=== PATIENT | female | born 1930 | race Caucasian/White ===

== ENCOUNTER 2017-04-10 12:46 | Inpatient (IN) | payer MEDICARE, OTHER ==
--- NOTE | ~2017-04-10 | OP ---
Record Of Operation [facility] [address] [place]. [address] NAME: ANA CORNEJO : 31 STATUS : ADM IN PAT#: [id number] AGE: 86 ADM/REG DATE : 04/10/17 MR#: [id number] REPORT SERV DATE: 04/21/17 DICTATED BY: SCOTT URIOSTEGUI III DATE: 04/21/17 REPORT STATUS : Draft TRANSCRIBED BY: MODL DATE: 04/21/17 DATE OF PROCEDURE: 04/21/2017 PROCEDURE: Assisted urethral dilatation and Short replacement. PREOPERATIVE DIAGNOSIS: UTI and urethral stricture. POSTOPERATIVE DIAGNOSIS: UTI and urethral stricture. ANESTHESIA: General. DESCRIPTION OF PROCEDURE: Following induction of adequate general anesthesia, the patient's bottom was elevated with a blanket. Her legs were minimally abducted with a slight flexion in the hip joints. We did not overstretch her. The urethra was visible. The catheter was removed and I initially had planned to dilate her, instead, I used a very small cystoscope sheath over a wire and surprisingly the web just inside the meatus spread apart and I was able to leave the bladder. The bladder had some old clots, was trabeculated, had almost necrotic look. I was able to dilate to a 20-Filipino with the larger sheath and we placed a 16 Filipino Short. It irrigated clear after some initial bleeding. She tolerated the procedure well. OB/MODL Scott Uriostegui III, M.D. / [id number] CC: Vanesa Casiano M.D.
--- NOTE | ~2017-04-10 | HP ---
History And Physical [address] [place]. [address] NAME: ANA CORNEJO : 31 STATUS : ADM IN [facility]#: [id number] AGE: 86 ADM/REG DATE : 04/10/17 MR#: [id number] REPORT SERV DATE: 04/10/17 DICTATED BY: Tricia CARRANZA DATE: 04/10/17 REPORT STATUS : Draft TRANSCRIBED BY: MODL DATE: 04/10/17 DATE OF ADMISSION: 04/10/2017 HISTORY OF PRESENT ILLNESS: An 86-year-old female patient with history of paroxysmal atrial fibrillation and cervical cancer with prior radiation and chemotherapy, currently living with her daughter, was brought in with several days of lethargy, confusion, poor oral intake. On arrival, she was found to have atrial fibrillation with rapid ventricular response. After Cardizem bolus, she is currently sinus rhythm at 84. Daughter also states she has had five consecutive UTIs. She states that they have done at least one culture that grew Escherichia coli. Also, in the emergency room, they were unable to place a Short catheter. Her previous creatinine was 0.73, current creatinine is 2.76. She has had previous cystoscopy done roughly four years ago by Dr. Scott Morris, pathology from that study was benign. Daughter states the patient is currently full code. We will admit the patient for further evaluation and treatment of acute kidney injury and atrial fibrillation that is paroxysmal in nature. PAST MEDICAL HISTORY: Includes paroxysmal atrial fibrillation, hypertension, cervical cancer with prior chemo and radiation, chronic anemia, depression, arthritis, osteoporosis, recurrent UTIs. SOCIAL HISTORY: The patient previously has been in [facility], currently living with her daughter with the assistance of Home Health Care. No alcohol or tobacco or illicit drugs. REVIEW OF SYSTEMS: Significant for lethargy, confusion, malaise, poor oral intake. No reported chest pain or shortness of breath. No high fever or shaking chills. No hematuria, dark stools, or bright red blood per rectum. Remainder of 10-point review of systems negative. FAMILY HISTORY: Positive for heart disease. PHYSICAL EXAMINATION: VITAL SIGNS: Temperature is 98.1; heart rate is 130, currently 84; respirations 21; blood pressure is 102/57. GENERAL: Well-developed, elderly female patient, sleepy, who will arouse to voice and answers simple questions, but is confused. HEENT: Pupils are equal, round, and reactive to light. Extraocular muscles are intact. Oropharynx is clear. NECK: Without JVD or bruit. LUNGS: Clear with few basilar rales noted. HEART: Regular without audible murmur. ABDOMEN: Obese, soft. Positive bowel sounds without organomegaly or mass. EXTREMITIES: No edema. Pulses are +2. SKIN: Without rash or ecchymotic area. JOINTS: Without synovitis, effusion, or deformity. Diffuse osteoarthritic changes noted. NEUROLOGIC: Cranial nerves grossly intact. Motor exam is diminished, but nonfocal. History And Physical [address] [facility]. [address] NAME: ANA CORNEJO : 31 STATUS : ADM IN [facility]#: [id number] AGE: 86 ADM/REG DATE : 04/10/17 MR#: [id number] REPORT SERV DATE: 04/10/17 DICTATED BY: Tricia CARRANZA DATE: 04/10/17 REPORT STATUS : Draft TRANSCRIBED BY: GÉNESIS DATE: 04/10/17 Sensation unremarkable. Gait was not assessed. LABORATORY DATA: Available data: Sodium 137, potassium 3.9, chloride 102, bicarb 27, BUN 36, creatinine 2.76, albumin is 1.7. White count is 14.8, hemoglobin is 11.1, hematocrit 35.4, platelets 276. IMPRESSION: An 86-year-old female patient with general failure to thrive, presents with acute renal failure, potentially obstructive in nature, and atrial fibrillation, paroxysmal in nature. PLAN: Admit, telemetry unit. Consult her urologist, Dr. Scott Morris. Routine vitals. O2 per protocol. N.p.o. until seen by Urology. Data to include spot urine sodium/creatinine and osmolality, TSH, repeat CBC, and electrolytes. Noncontrasted CT of the abdomen and pelvis to evaluate for pathology particularly for obstructive changes in the urinary system. Hydrate with saline at 125 an hour. Reasonable pain and nausea control will be offered. We will hold antimicrobial therapy until urinalysis is available. Echocardiogram to be read by [facility] to evaluate left ventricular and valvular function. With regard to her home medications, we will continue current home medications per med reconciliation form. Sunburst full code status per family request. Further recommendations for treatment pending observation of her clinical course, review of pending laboratory data, review of CT findings, input from Urology. Pending trend in her creatinine, would also have some consideration for consulting Nephrology if she does not promptly improve with cannulization of the bladder and IV hydration. EARL/GÉNESIS Tricia Carranza M.D. / [id number]
--- NOTE | ~2017-04-10 | CN ---
Consultation Report [facility] [address] [place]. [address] NAME: ANA CORNEJO : 31 STATUS : ADM IN PAT#: [id number] AGE: 86 ADM/REG DATE : 04/10/17 MR#: [id number] REPORT SERV DATE: 04/12/17 DICTATED BY: SCOTT URIOSTEGUI III DATE: 04/12/17 REPORT STATUS : Draft TRANSCRIBED BY: MODL DATE: 04/12/17 CONSULTATION DATE OF CONSULTATION: 04/10/2017 REASON FOR CONSULT: Inability to place Short catheter, UTI, and elevated creatinine. HISTORY OF PRESENT ILLNESS: She is an 86-year-old white female, known to me. She came in with atrial fibrillation with rapid ventricular rate. Her creatinine was noted to be 2.76. She has also had a number of UTIs including E coli, according to her daughter. Multiple attempts were made to place the catheter, which were unsuccessful. She has a history of cervical cancer with seed implants, external beam, and chemotherapy. Several years ago, she had bladder biopsies that were negative. She basically leaks into a diaper most of the time and has very little control. Denies any dysuria or gross hematuria. Her white count was 15.26. Urine was very inflammatory. PAST MEDICAL HISTORY: Includes atrial fibrillation, hypertension, cervical cancer, depression, osteoporosis, and UTIs. SOCIAL HISTORY: She is living with her daughter. Does not drink or smoke. REVIEW OF SYSTEMS: A 10-point review of systems was essentially negative with the exception that she is not ambulatory and has multiple hip and knee problems that leave her the legs contracted. FAMILY HISTORY: Positive for heart disease. PHYSICAL EXAMINATION: VITAL SIGNS: She was afebrile. Pulse was 80 and regular. Blood pressure was 110/60. GENERAL: She was fairly alert, responded appropriately to questions, but could not give much detail. HEENT: Pupils were equal, round, and reactive. NECK: Supple. LUNGS: Clear. HEART: She was in a regular rhythm without murmur. ABDOMEN: Soft. Bowel sounds were present and active. Liver and spleen were not enlarged. GENITOURINARY: The bladder was not palpable. Her lower extremities were fixed. We could not abduct when I tried multiple times even including with some sedation. When I passed the catheter, I could see the meatus, but simply could not traverse the lumen. IMPRESSION: Elderly white female with urinary tract infection. Her PVR was around 250 mL. She is obviously infected and will need a catheter placed in the a.m., possibly in the operating room. She may well have a urethral stricture, so I did gain access to the meatus, but simply could not put a coude through it, and under the circumstances, had poor exposure. Consultation Report [address] [place] [facility] [place]. [address] NAME: ANA CORNEJO : 31 STATUS : ADM IN PAT#: [id number] AGE: 86 ADM/REG DATE : 04/10/17 MR#: [id number] REPORT SERV DATE: 04/12/17 DICTATED BY: SCOTT URIOSTEGUI III DATE: 04/12/17 REPORT STATUS : Draft TRANSCRIBED BY: GÉNESIS DATE: 04/12/17 PLAN: We will keep her n.p.o., she is to get a CT scan, and we will see if there is hydronephrosis, possibly from bladder wall thickening. OB/MODL Scott Uriostegui III, M.D. / [id number] CC: Ti Baptiste M.D.
--- NOTE | ~2017-04-10 | DS ---
Discharge Summary [facility] [address] [place]. [address] NAME: ANA CORNEJO : 32 STATUS : DIS IN PAT#: [id number] AGE: 86 ADM/REG DATE : 04/10/17 MR#: [id number] REPORT SERV DATE: 04/28/17 DICTATED BY: EDWINA KWONG DATE: 04/27/17 REPORT STATUS : Draft TRANSCRIBED BY: MODL DATE: 04/27/17 ADMISSION DATE: 04/10/2017 DISCHARGE DATE: 04/27/2017 DISCHARGE DISPOSITION: To [facility] [place]. DISCHARGE DIAGNOSES: Ureteral stricture status post urethral dilation, Short placement per urologist and Subsequent removal, on 04/22/2017 stricture thought secondary to history of radiation, recurrent UTIs resolved by time of discharge with extended antibiotic treatment, atrial fibrillation, urinary bladder severe damage secondary to radiation therapy history with history of cervical cancer, swallowing dysfunction with silent aspiration on thickened diet, improved after acute encephalopathy, treatment for urinary tract infection has been improved, chronic bedridden, chronically weak, baseline dementia, Escherichia coli urinary tract infection present on arrival with severe sepsis present on arrival, hypokalemia, constipation, and chronic debility. HOSPITAL COURSE: Please see H and P for complete details of HPI briefly, and interim summary by this play writer on 04/19/[address] Davis on 04/25/2017, and with consultations of Dr. Concepcion, Cardiology; Dr. Morris with assisted ureteral dilation Short placement with subsequent removal. HISTORY OF PRESENT ILLNESS: The patient is an 86-year-old female with past medical history of cervical cancer, and post chemo/radiation with frequent UTIs, multiple treatments and atrial fibrillation, who presents with atrial fibrillation and RVR with recurrent UTI and CRISTY secondary to hypertension. The patient did have Short placement that had to be surgically placed by Dr. Morris. With subsequent improvement the patient was able to have clearance of UTI, was placed on Rocephin therapy with significant improvement. The patient did have what appeared to be acute decompensation of dementia, possible acute encephalopathy, which had improvement in mental status after improvement of urinary flow was returned, return of creatinine function and treatment of UTI. The patient did have even further debility of her baseline state and family was agreeable to short-term rehab to get her back to her stability where she is able to perform at least her ADLs. The patient was tolerating p.o., although her food choices were somewhat limiting to how much the patient would eat, thus the patient was placed on thickened diet and did not prefer thickeners, but was eager to eat various types of ice creams, popsicles without difficulty as her speech function continued to improve. Palliative Care was also consulted for additional assistance per family. The patient has completed over 10 days of antibiotic therapy. DISCHARGE MEDICATIONS: 1. Tessalon Perles 200 mg one tablet p.o. t.i.d. as needed for cough. 2. Synthroid 75 mg one tablet p.o. daily. 3. Daily multivitamin. 4. Lopressor 37.5 mg one tablet p.o. b.i.d. 5. AZO one tablet p.o. t.i.d. 6. Tramadol 50 mg one tablet p.o. q.8 hours for pain. 7. Midodrine 5 mg one tablet p.o. daily. Discharge Summary [address] [address] NAME: ANA CORNEJO : 32 STATUS : DIS IN PAT#: [id number] AGE: 86 ADM/REG DATE : 04/10/17 MR#: [id number] REPORT SERV DATE: 04/28/17 DICTATED BY: EDWINA KWONG DATE: 04/27/17 REPORT STATUS : Draft TRANSCRIBED BY: GÉNESIS DATE: 04/27/17 8. Tylenol 650 mg p.o. q.4 hours as needed for fever p.r.n. 9. Dulcolax 10 mg MN p.r.n. constipation. 10.Mag citrate 300 mg p.o. liquid daily for constipation. 11.Zofran 4 mg q.4 as needed for nausea. 12.Cymbalta, Restoril, and Percocet all to be followed with PCP as the patient does not require these while inpatient. The patient also followed with Urology as ordered. Follow up with PCP in one to two weeks for followup BMP, CBC in one to two weeks. DICTATED BY: MD MAKR Juárez/GÉNESIS Edwina Kwong MD / [id number] CC: MD Rebel Juárez M.D.
--- NOTE | ~2017-04-10 | OP ---
Record Of Operation [facility] [address] [place] [address] NAME: ANA CORNEJO : 31 STATUS : ADM IN PAT#: [id number] AGE: 86 ADM/REG DATE : 04/10/17 MR#: [id number] REPORT SERV DATE: 04/11/17 DICTATED BY: SCOTT URIOSTEGUI III DATE: 04/11/17 REPORT STATUS : Draft TRANSCRIBED BY: MODL DATE: 04/11/17 DATE OF PROCEDURE: 04/11/2017 PROCEDURE: Insertion of urethral Short. PREOPERATIVE DIAGNOSIS: Urinary tract infection with probable urethral stricture. POSTOPERATIVE DIAGNOSIS: Urinary tract infection with probable urethral stricture. ANESTHESIA: General. SURGEON: Scott Uriostegui M.D. DESCRIPTION OF PROCEDURE: Following induction of adequate general anesthesia, the patient's legs were gently raised. She was placed on blankets and we had excellent exposure. I tried to place a 16-Vietnamese Short in the meatus and it simply would not go. A 14-Vietnamese Short passed only with a good bit of K-wire injected. Grossly purulent cath urine was obtained. A culture was sent and she was placed on bag drainage. She tolerated the procedure well. OB/MODL Scott Uriostegui III, M.D. / [id number] CC: Ti Baptiste M.D.
--- NOTE | ~2017-04-10 | CN ---
Consultation Report [facility] [address] [place]. [address] NAME: ANA CORNEJO : 32 STATUS : ADM IN PAT#: [id number] AGE: 86 ADM/REG DATE : 04/10/17 MR#: [id number] REPORT SERV DATE: 04/11/17 DICTATED BY: MIKE CONCEPCION DATE: 04/11/17 REPORT STATUS : Draft TRANSCRIBED BY: MODL DATE: 04/11/17 CARDIOLOGY CONSULTATION NOTE DATE OF CONSULTATION: 04/11/2017 REASON FOR CONSULTATION: Preoperative evaluation in an 86-year-old woman with paroxysmal atrial fibrillation. HISTORY OF PRESENT ILLNESS: Ms. Cornejo is a pleasant 86-year-old woman with an apparent history of underlying dementia and paroxysmal atrial fibrillation. She is followed in Cardiology Clinic by Dr. Rebel Ramirez. The patient has no known history of coronary heart disease or congestive heart failure. The patient apparently was in her usual state of health until several days ago, when her daughter, who assist with her health care, began to notice worsening lethargy, confusion, and decreased p.o. intake. The patient was brought to [facility] room for evaluation. She was found to be in atrial fibrillation with rapid ventricular response, but apparently cardioverted to normal sinus rhythm with administration of IV Cardizem. The patient was also found to have acute renal failure. She was also found to have a urinary tract infection. The patient apparently has had several recent urinary tract infections. She was admitted for treatment of acute renal failure, complicated urinary tract infection, and has been evaluated by the Urology Service. A cystoscopy was performed earlier today and the Cardiology Service was consulted to make perioperative recommendations. PAST MEDICAL HISTORY: 1. Paroxysmal atrial fibrillation. 2. Hypertension. 3. Cervical cancer with previous history of chemo and radiation therapy. 4. Chronic anemia. 5. Depression. 6. Arthritis. 7. Osteoporosis. 8. Hypothyroidism. PAST SURGICAL HISTORY: Noncontributory. FAMILY HISTORY: Apparently positive for coronary heart disease, though essentially otherwise noncontributory. SOCIAL HISTORY: The patient currently resides at home with her daughter with home health care. The patient has no known history of tobacco, alcohol, or drug use. ALLERGIES: THE PATIENT HAS NO KNOWN MEDICATION ALLERGIES. HOME MEDICATIONS: Consultation Report [facility] [address] [place]. [address] NAME: ANA CORNEJO : 32 STATUS : ADM IN PAT#: [id number] AGE: 86 ADM/REG DATE : 04/10/17 MR#: [id number] REPORT SERV DATE: 04/11/17 DICTATED BY: MIKE CONCEPCION DATE: 04/11/17 REPORT STATUS : Draft TRANSCRIBED BY: GÉNESIS DATE: 04/11/17 1. Cymbalta 60 mg p.o. daily. 2. Levothyroxine 75 mg p.o. daily. 3. Metoprolol 25 mg p.o. twice daily. 4. Midodrine 5 mg p.o. daily. 5. Oxycodone and acetaminophen 5/325 mg one p.o. q.6 hours as needed. 6. Restoril 15 mg p.o. q.h.s. 7. Detrol 2 mg p.o. twice daily. 8. Tramadol 50 mg p.o. q.8 hours. REVIEW OF SYSTEMS: The patient is unable to provide a complete review of systems at this time. Of note, she does presently denies chest pain or shortness of breath and otherwise appears comfortable. PHYSICAL EXAMINATION: VITAL SIGNS: Temperature is 98.6 degrees Fahrenheit, blood pressure is 148/67 mmHg, respirations 14, and oxygen saturation is 94% on room air. CONSTITUTIONAL: The patient is a frail elderly-appearing white woman. The patient is currently disoriented to time and place; she gives the place as [place] and the year is 1975. The patient does not appear to be in any acute respiratory distress. EYES: PERRL, EOMI, clear conjunctiva. HEAD/MNT: NCAT with moist mucous membranes and grossly normal hard and soft palate. NECK: Supple with no obvious thyromegaly or lymphadenopathy. CARDIOVASCULAR: There is a regular rhythm with normal S1 and a physiologically split second heart sound. No significant murmurs, rubs, or gallops are noted. The jugular venous pressure is normal. PULMONARY: Clear to auscultation bilaterally, no wheezing, rales or rhonchi noted. No dullness to percussion. Non-labored. ABDOMINAL: Soft, nontender, nondistended with no hepatosplenomegaly noted. EXTREMITIES: There is 1+ ankle edema bilaterally. No clubbing or cyanosis is noted. MUSCULOSKELETAL: Grossly normal strength and range of motion in all extremities. INTEGUMENTARY: Skin appears intact with no bruises, wounds or active lesions noted. NEURO/PSYC: Alert and oriented x3, with no dysarthria, facial droop or lateralizing weakness noted. 12-lead EKG: The 12-lead EKG shows normal sinus rhythm with a nonspecific intraventricular conduction delay. It is a poor quality tracing, but does not appear to be significantly changed in comparison to a previous tracing from February 2016. Chest x-ray: No acute cardiopulmonary process is identified. LABORATORY: Urinalysis is positive for greater than 100,000 CFU/mL, liter of gram-negative bacilli. Electrolytes: Sodium is 140, potassium 3.6, chloride is 107, CO2 is 23, BUN 50, creatinine is 2.4, glucose is 65, calcium is 8.9. CBC shows a white blood cell count of 15.6, Consultation Report [id number] [place]. [address] NAME: ANA CORNEJO : 32 STATUS : ADM IN [facility]#: [id number] AGE: 86 ADM/REG DATE : 04/10/17 MR#: [id number] REPORT SERV DATE: 04/11/17 DICTATED BY: MIKE CONCEPCION DATE: 04/11/17 REPORT STATUS : Draft TRANSCRIBED BY: MODDesirae DATE: 04/11/17 hemoglobin 11, hematocrit 34, platelets 282. Cardiac telemetry: The patient remains in normal sinus rhythm at this time. ASSESSMENT AND PLAN: 1. Preoperative evaluation for cystoscopy: The patient has already undergone cystoscopy at this time. She remains in normal sinus rhythm and has apparently had no perioperative complications. The patient is at moderate cardiovascular risk for procedures due to her extreme age, but I would recommend no further cardiovascular testing at this time. 2. Paroxysmal atrial fibrillation: The patient is returned to normal sinus rhythm. The patient has a history of multiple previous falls. She also has multiple bleeding risk factors. The patient also has chronic anemia. Under these circumstances, Dr. Ramirez has not treated the patient with an oral anticoagulant. I feel this is quite reasonable. For now, particularly given the patient's acute renal failure and urinary tract infection, oral anticoagulation will be withheld. The patient will continue on metoprolol. The patient has previously been treated with sotalol, but apparently is no longer taking this medication according to her home medication list. The patient will have followup with Dr. Ramirez in two to four weeks after hospital discharge. 3. Hypertension: Reasonably control. Continue current regimen. 4. Acute renal failure: Recommend gentle volume repletion as tolerated. Thank you for allowing me to participate in the care of Ms. Cornejo. The patient does not appear to have any active cardiovascular issues at this time. The Cardiology Service will sign off. Should the patient have ongoing episodes of atrial fibrillation, RVR, or other concerning cardiovascular symptoms, please re-consult Cardiology. JC/MODL Mike Concepcion MD / [id number] CC: Ti Baptiste M.D.
--- NOTE | ~2017-04-10 | IDS ---
Interim Discharge Summary [facility] [address] [place]. [address] NAME: ANA CORNEJO : 32 STATUS : ADM IN PAT#: [id number] AGE: 86 ADM/REG DATE : 04/10/17 MR#: [id number] REPORT SERV DATE: 04/25/17 DICTATED BY: CANDIDA MCPHERSON DATE: 04/25/17 REPORT STATUS : Draft TRANSCRIBED BY: MODL DATE: 04/25/17 ADMISSION DATE: 04/10/2017 DISCHARGE DATE: Dates of service provided from 04/19/2017 to 04/25/2017. CURRENT MEDICAL PROBLEMS: 1. Ureteral stricture, status post ureteral dilation and Short replacement per urologist, Dr. Morris on 04/21/2017. 2. Status post Short removal on 04/22/2017. 3. UTI, resolved. 4. Atrial fibrillation with fluctuation of the heart rate, was on Cardizem yesterday. Currently rate controlled. Heart rate in the 80s to 90s with a borderline blood pressure 97/56. 5. 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 6. History of cervical cancer. 7. Swallowing dysfunction with silent aspiration, needs to be on thickened diet. 8. Chronically bedridden with poor oral intake, not taking food and not taking enough fluids. Needed periodical IV fluid hydration, otherwise will become dehydrated. 9. Baseline dementia. 10.Bedridden. 11.Poor prognosis for recovery. Palliative Care consulted. CONSULTANTS ON THE CASE: Palliative Care, Dr. Marmolejo. Consult pending for today as well as urologist, Dr. Morris. For the week that I saw the patient, she had the procedure mentioned above. Ureteral stricture relief. Dr. Morris reported to me that urinary bladder was severely damaged by previous radiation therapy, so Dr. Morris said that this patient cannot have a cannot have periodical Short replacement, and after ureteral dilatation, next day he discontinued Short catheter and he said that she is incontinent and she needs to void in diaper. Regarding her atrial fibrillation, it was elevated heart rate on Cardizem drip, got better. She is not a candidate for anticoagulation as well as she cannot tolerate higher dosages of metoprolol because of blood pressure being borderline, so she will stay on 37.5 of metoprolol b.i.d. Swallowing dysfunction, on thickened liquids, she has silent aspiration. She has a severely abnormal swallowing study, so I discussed with the patient's granddaughter and I told her that the patient has very poor functional status and I told her that she is a candidate for hospice and I also consulted Palliative Care, Dr. Marmolejo and they will also speak with Chadd Rockwell regarding this problem. Mild acute kidney injury since the patient's creatinine was 1.1 today, yesterday was 1.04. She is not drinking enough fluids. I started her on IV fluids, but I do not want to Interim Discharge Summary [place] [id number] [place]. [id number] NAME: ANA CORNEJO : 32 STATUS : ADM IN PAT#: [id number] AGE: 86 ADM/REG DATE : 04/10/17 MR#: [id number] REPORT SERV DATE: 04/25/17 DICTATED BY: CANDIDA MCPHERSON DATE: 04/25/17 REPORT STATUS : Draft TRANSCRIBED BY: MODL DATE: 04/25/17 overload with fluids because then she will go to congestive heart failure, so we will give her normal saline for eight hours, then we will discontinue, recheck creatinine tomorrow. Hypokalemia has been replaced. Overall poor prognosis. Palliative Care consulted. Dr. Morris is also in agreement. She probably will finish her antibiotic Rocephin. We will discontinue since she completed for 10 days. She is currently on Lopressor, dose was decreased to 37.5 p.o. b.i.d.; levothyroxine 75 mcg daily; she is on ProAmatine 5 mg p.o. daily for orthostatic hypotension; on Tessalon Perles 200 p.o. t.i.d.; on Ultram 50 mg p.o. q.8 hours for pain; on Azo urinary pain relief t.i.d. Dr. Brower will see tomorrow. MG/MODL Candida Mcpherson M.D. / [id number] CC: Candida Mcpherson M.D. Rebel Adams M.D.
--- NOTE | ~2017-04-10 | IDS ---
Interim Discharge Summary [facility] [address] [place] [place]. [address] NAME: ANA CORNEJO : 32 STATUS : ADM IN PAT#: [id number] AGE: 86 ADM/REG DATE : 04/10/17 MR#: [id number] REPORT SERV DATE: 04/19/17 DICTATED BY: EDWINA KWONG DATE: 04/19/17 REPORT STATUS : Draft TRANSCRIBED BY: MODL DATE: 04/19/17 ADMISSION DATE: 04/10/2017 DISCHARGE DATE: DATE OF INTERIM SUMMARY: 04/18/2017. PROCEDURES: Surgical placement of Short catheter. CT limited study for suprapubic catheter. Urine culture; E. coli. Swallow study; silent aspiration. Brain without contrast CT; moderate to marked atrophy, old extensive old ischemic changes. No acute bleed. See full report. CT abdomen and pelvis; benign left renal cyst bibasilar atelectasis. New small amount of pericardial effusion and anemia. Pelvis anatomy is distorted due to metal artifact and we should consider imaging with contrast pelvic MRI. CONSULTANTS: Dr. Morris. INTERIM DIAGNOSES: 1. Atrial fibrillation with RVR. 2. Acute kidney injury. 3. E. coli urinary tract infection, present on arrival. 4. Severe sepsis present on arrival. 5. Cervical cancer history. 6. Hypokalemia. 7. Constipation. 8. Chronic debility. HOSPITAL COURSE: Please see H and P for complete details. HISTORY OF PRESENT ILLNESS: Briefly, Ms. Cornejo is an 86-year-old female with past medical history of cervical cancer, status post ex-chemo XRT with multiple frequent UTIs, multiple rounds of treatment who presented in atrial fibrillation with RVR and additionally has CRISTY secondary to E. coli UTI, and significant urinary retention although not able to be placed at bedside, had surgical placement of Short with significant improvement after this. She does have occasional mild delirium episodes and is currently on treatment for E. coli and silent aspiration component. The patient does have severe sepsis criteria which is improving with both CRISTY and encephalopathy. The patient is being evaluated for suprapubic catheter although initial CT did not show reasonable access through Radiology at this time, to be followed by Dr. Morris for additional evaluation. Electrolytes; the hypokalemia has been continued to optimized and closely monitored. The patient to continue Rocephin therapy until after procedure has been performed. Physical therapy has evaluated the patient. Per family, the patient has declined some forms of long- term therapy but would be reasonable if it was short-term. Interim Discharge Summary [address] [address] NAME: ANA CORNEJO : 32 STATUS : ADM IN PAT#: [id number] AGE: 86 ADM/REG DATE : 04/10/17 MR#: [id number] REPORT SERV DATE: 04/19/17 DICTATED BY: EDWINA KWONG DATE: 04/19/17 REPORT STATUS : Draft TRANSCRIBED BY: GÉNESIS DATE: 04/19/17 DDN/GÉNESIS Edwina Kwong MD / [id number] CC: MD Rebel Juárez M.D.
[~2017-04-10 12:46] MED LIST: ADVIL PO; ASAB PO; ATV.5 PO; BETAPACE80 PO; CYMBALTA; CYMBALTA60 PO; DCN100 PO; LEVOTHYROXINE; LISINOPRIL; LOP50 PO; LORTAB10 PO; PROAMAT5 PO; REST15 PO; SYN075 PO; TEMAZEPAM; ULTRACET PO; ZESTORETIC PO
[2017-04-10] MEDS ORDERED: LEVOTHYROXIN75 MCG PO (14:00)
[2017-04-10] MEDS ORDERED: PROAMAT5 PO (14:01)
[2017-04-10] MEDS ORDERED: CYMBALTA60 PO (14:01)
[2017-04-10] MEDS ORDERED: LOP25 PO (14:01)
[2017-04-10] MEDS ORDERED: PCET PO (14:02)
[2017-04-10] MEDS ORDERED: REST15 PO (14:02)
[2017-04-10] MEDS ORDERED: DETROL2 PO (14:02)
[2017-04-10] MEDS ORDERED: ULTRAM50 PO (14:03)
[2017-04-10 14:27] LABS: BASOPHILS 0.1 %; BASOPHILS ABSOLUTE 0.02 10/3/uL (0.0-0.16); EOSINOPHILS 0.1 %; EOSINOPHILS ABSOLUTE 0.01 10/3/uL (0.0-0.53); HEMATOCRIT 35.4 % (36.0-48.0); HEMOGLOBIN 11.1 g/dL (12.0-16.0); IMMATURE GRANULOCYTES 0.9 %; IMMATURE GRANULOCYTES ABSOLUTE 0.14 10/3/uL (0.0-0.11); LYMPHOCYTES 4.4 %; LYMPHOCYTES ABSOLUTE 0.66 10/3/uL (0.67-4.30); MEAN CORPUS HGB CONC 31.4 g/dL (32.0-36.0); MEAN CORPUSCULAR HEMOGLOB 25.9 pg (26.0-34.0); MEAN CORPUSCULAR VOLUME 82.7 fL (80-100); MEAN PLATELET VOLUME 8.6 fL (9.2-13.0); MONOCYTES 4.4 %; MONOCYTES ABSOLUTE 0.65 10/3/uL (0.21-1.20); NEUTROPHILS 90.1 %; NEUTROPHILS ABSOLUTE 13.36 10/3/uL (2.02-8.40); PLATELET COUNT 276 10/3/uL (150-400); RBC DISTRIBUTION WIDTH 15.6 % (12.0-16.0); RED CELL COUNT 4.28 10/6/uL (4.0-5.6)
[2017-04-10 14:28] LABS: ER CBC TAT 0 Hrs 05 Mins; MANUAL DIFF NO %; WHITE BLOOD CELLS 14.8 10/3/uL (4.5-10.5)
[2017-04-10 14:35] LABS: INTERNATIONAL NORMAL RATI 1.2 UNITS (-); PROTIME (NOT ORD) 14.9 SEC (12.0-14.5)
[2017-04-10 14:51] LABS: ALKALINE PHOSPHATASE 608 U/L (45-117); CALCIUM, SERUM 8.4 MG/DL (8.5-10.4); CHLORIDE, SERUM 102 MMOL/L (96-112); GLUCOSE, SERUM 86 MG/DL (60-99); POTASSIUM, SERUM 3.9 MMOL/L (3.5-5.3); SGOT(AST) 17 U/L (5-40); SGPT(ALT) 14 U/L (5-65); SODIUM, SERUM 137 MMOL/L (135-148); TOTAL PROTEIN 6.6 G/DL (6.0-8.5)
[2017-04-10 14:52] LABS: A/G RATIO 0.3 (0.7-1.9); ALBUMIN 1.7 G/DL (3.5-5.0); BUN (BLOOD UREA NITROGEN) 56 MG/DL (6-23); CO2 (CARBON DIOXIDE) 27 MMOL/L (24-34); CREATININE 2.76 MG/DL (0.55-1.02); GFR AFRICAN AMERICAN 17 ML/MIN (>=60); GFR NON AFRICAN AMERICAN 15 ML/MIN (>=60); GLOBULIN 4.9 G/DL (2.5-4.1); TOTAL BILIRUBIN 0.7 MG/DL (0-1.2)
[2017-04-10 16:09] LABS: ASCORBIC ACID (UR NOT ORDER) NEG (NEG); BILIRUBIN, URINE NEGATIVE (NEG); ER URINALYSIS TAT 0 Hrs 16 Mins; KETONE, URINE NEGATIVE (NEG); LEUKOCYTE ESTERASE(NOT OR LARGE (NEG); NITRITE (URINE) NEG (NEG)
[2017-04-10 16:11] LABS: WBC (NOT ORDERED) (RFLEX) > 182 (0-5)
[2017-04-11 06:06] LABS: HEMATOCRIT 34.1 % (36.0-48.0); HEMOGLOBIN 10.7 g/dL (12.0-16.0); MEAN CORPUS HGB CONC 31.4 g/dL (32.0-36.0); MEAN CORPUSCULAR HEMOGLOB 26.3 pg (26.0-34.0); MEAN CORPUSCULAR VOLUME 83.8 fL (80-100); MEAN PLATELET VOLUME 8.7 fL (9.2-13.0); PLATELET COUNT 282 10/3/uL (150-400); RBC DISTRIBUTION WIDTH 15.9 % (12.0-16.0); RED CELL COUNT 4.07 10/6/uL (4.0-5.6); WHITE BLOOD CELLS 15.6 10/3/uL (4.5-10.5)
[2017-04-11 06:10] LABS: MANUAL DIFF YES %
[2017-04-11 06:19] LABS: BUN (BLOOD UREA NITROGEN) 50 MG/DL (6-23); CALCIUM, SERUM 8.9 MG/DL (8.5-10.4); CHLORIDE, SERUM 107 MMOL/L (96-112); CO2 (CARBON DIOXIDE) 23 MMOL/L (24-34); CREATININE 2.39 MG/DL (0.55-1.02); GFR AFRICAN AMERICAN 21 ML/MIN (>=60); GFR NON AFRICAN AMERICAN 18 ML/MIN (>=60); GLUCOSE, SERUM 65 MG/DL (60-99); POTASSIUM, SERUM 3.6 MMOL/L (3.5-5.3); SODIUM, SERUM 140 MMOL/L (135-148)
[2017-04-11 06:42] LABS: BAND NEUTROPHILS 1 %; LYMPHOCYTES 1 %; LYMPHOCYTES ABSOLUTE (CALC) 0.16 10/3/uL (0.67-4.30); MONOCYTES 5 %; MONOCYTES ABSOLUTE (CALC) 0.78 10/3/uL (0.21-1.20); NEUTROPHILS ABSOLUTE (CALC) 14.66 10/3/uL (2.02-8.40); PLATELET ESTIMATE ADQ (ADEQUATE); SEGMENTED NEUTROPHIL (0) 93 %; TOTAL NUCLEATED CELLS 100; TOXIC GRANULATION SLT
[2017-04-11 06:43] LABS: GIANT PLATELET RARE; RBC MORPHOLOGY NORM (NORMAL)
[2017-04-12 05:50] LABS: BASOPHILS 0.1 %; BASOPHILS ABSOLUTE 0.01 10/3/uL (0.0-0.16); HEMOGLOBIN 9.4 g/dL (12.0-16.0); IMMATURE GRANULOCYTES 1.7 %; IMMATURE GRANULOCYTES ABSOLUTE 0.17 10/3/uL (0.0-0.11); LYMPHOCYTES 6.4 %; LYMPHOCYTES ABSOLUTE 0.62 10/3/uL (0.67-4.30); MEAN CORPUS HGB CONC 31.5 g/dL (32.0-36.0); MEAN CORPUSCULAR HEMOGLOB 26.3 pg (26.0-34.0); MEAN CORPUSCULAR VOLUME 83.2 fL (80-100); MEAN PLATELET VOLUME 8.4 fL (9.2-13.0); MONOCYTES 5.5 %; MONOCYTES ABSOLUTE 0.53 10/3/uL (0.21-1.20); NEUTROPHILS 85.3 %; NEUTROPHILS ABSOLUTE 8.29 10/3/uL (2.02-8.40); PLATELET COUNT 264 10/3/uL (150-400); RED CELL COUNT 3.58 10/6/uL (4.0-5.6); WHITE BLOOD CELLS 9.7 10/3/uL (4.5-10.5)
[2017-04-12 05:51] LABS: HEMATOCRIT 29.8 % (36.0-48.0); MANUAL DIFF NO %
[2017-04-12 06:07] LABS: ALBUMIN 1.4 G/DL (3.5-5.0); BUN (BLOOD UREA NITROGEN) 36 MG/DL (6-23); CALCIUM, SERUM 8.3 MG/DL (8.5-10.4); CHLORIDE, SERUM 112 MMOL/L (96-112); CO2 (CARBON DIOXIDE) 23 MMOL/L (24-34); CREATININE 1.89 MG/DL (0.55-1.02); GFR AFRICAN AMERICAN 28 ML/MIN (>=60); GFR NON AFRICAN AMERICAN 24 ML/MIN (>=60); GLUCOSE, SERUM 74 MG/DL (60-99); PHOSPHORUS, SERUM 2.5 MG/DL (2.5-4.5); POTASSIUM, SERUM 3.3 MMOL/L (3.5-5.3); SODIUM, SERUM 142 MMOL/L (135-148)
[2017-04-13 06:41] LABS: BASOPHILS 0.4 %; BASOPHILS ABSOLUTE 0.03 10/3/uL (0.0-0.16); EOSINOPHILS 1.8 %; EOSINOPHILS ABSOLUTE 0.15 10/3/uL (0.0-0.53); HEMATOCRIT 31.8 % (36.0-48.0); HEMOGLOBIN 9.9 g/dL (12.0-16.0); IMMATURE GRANULOCYTES 4.7 %; LYMPHOCYTES 8.2 %; MEAN CORPUS HGB CONC 31.1 g/dL (32.0-36.0); MEAN CORPUSCULAR HEMOGLOB 26.3 pg (26.0-34.0); MEAN CORPUSCULAR VOLUME 84.4 fL (80-100); MEAN PLATELET VOLUME 8.2 fL (9.2-13.0); MONOCYTES 5.2 %; MONOCYTES ABSOLUTE 0.44 10/3/uL (0.21-1.20); NEUTROPHILS 79.7 %; NEUTROPHILS ABSOLUTE 6.77 10/3/uL (2.02-8.40); PLATELET COUNT 237 10/3/uL (150-400); RBC DISTRIBUTION WIDTH 16.2 % (12.0-16.0); RED CELL COUNT 3.77 10/6/uL (4.0-5.6); WHITE BLOOD CELLS 8.5 10/3/uL (4.5-10.5)
[2017-04-13 06:43] LABS: MANUAL DIFF NO %
[2017-04-13 08:31] LABS: CHLORIDE, SERUM 115 MMOL/L (96-112); CO2 (CARBON DIOXIDE) 25 MMOL/L (24-34); CREATININE 1.45 MG/DL (0.55-1.02); GFR AFRICAN AMERICAN 38 ML/MIN (>=60); GFR NON AFRICAN AMERICAN 33 ML/MIN (>=60); POTASSIUM, SERUM 4.2 MMOL/L (3.5-5.3); SODIUM, SERUM 146 MMOL/L (135-148)
[2017-04-13 08:32] LABS: BUN (BLOOD UREA NITROGEN) 26 MG/DL (6-23); GLUCOSE, SERUM 106 MG/DL (60-99)
[2017-04-14 06:12] LABS: HEMOGLOBIN 11.2 g/dL (12.0-16.0); MEAN CORPUS HGB CONC 30.4 g/dL (32.0-36.0); MEAN CORPUSCULAR HEMOGLOB 26.7 pg (26.0-34.0); MEAN PLATELET VOLUME 8.5 fL (9.2-13.0); RBC DISTRIBUTION WIDTH 16.6 % (12.0-16.0); RED CELL COUNT 4.19 10/6/uL (4.0-5.6)
[2017-04-14 06:14] LABS: HEMATOCRIT 36.9 % (36.0-48.0); MEAN CORPUSCULAR VOLUME 88.1 fL (80-100); PLATELET COUNT 341 10/3/uL (150-400); WHITE BLOOD CELLS 12.3 10/3/uL (4.5-10.5)
[2017-04-14 06:16] LABS: MANUAL DIFF YES %
[2017-04-14 07:05] LABS: BAND NEUTROPHILS 2 %; IMMATURE GRANS ABSOLUTE (CALC) 0.12 10/3/uL (0.0-0.11); LYMPHOCYTES 8 %; LYMPHOCYTES ABSOLUTE (CALC) 0.98 10/3/uL (0.67-4.30); METAMYELOCYTES 1 %; MONOCYTES 4 %; MONOCYTES ABSOLUTE (CALC) 0.49 10/3/uL (0.21-1.20); SEGMENTED NEUTROPHIL (0) 85 %; TOTAL NUCLEATED CELLS 100
[2017-04-14 07:06] LABS: ANISOCYTOSIS 1+ (5-10/OIF) (0-5/OIF); HYPOCHROMIA 1+ (3-10/OIF) (0-2/OIF); PLATELET ESTIMATE ADQ (ADEQUATE); TOXIC GRANULATION SLT
[2017-04-14 07:07] LABS: POLYCHROMASIA 1+ (2-5/OIF) (0-1/OIF)
[2017-04-14 10:23] LABS: CALCIUM, SERUM 8.2 MG/DL (8.5-10.4); CHLORIDE, SERUM 115 MMOL/L (96-112); CO2 (CARBON DIOXIDE) 25 MMOL/L (24-34); CREATININE 1.23 MG/DL (0.55-1.02); GFR AFRICAN AMERICAN 46 ML/MIN (>=60); GFR NON AFRICAN AMERICAN 40 ML/MIN (>=60); GLUCOSE, SERUM 111 MG/DL (60-99); POTASSIUM, SERUM 4.4 MMOL/L (3.5-5.3); SODIUM, SERUM 146 MMOL/L (135-148)
[2017-04-14 10:24] LABS: BUN (BLOOD UREA NITROGEN) 20 MG/DL (6-23)
[2017-04-15 06:00] LABS: HEMATOCRIT 36.8 % (36.0-48.0); MEAN CORPUS HGB CONC 29.9 g/dL (32.0-36.0); MEAN CORPUSCULAR HEMOGLOB 26.2 pg (26.0-34.0); MEAN CORPUSCULAR VOLUME 87.6 fL (80-100); MEAN PLATELET VOLUME 8.6 fL (9.2-13.0); PLATELET COUNT 315 10/3/uL (150-400); RBC DISTRIBUTION WIDTH 16.5 % (12.0-16.0); WHITE BLOOD CELLS 14.1 10/3/uL (4.5-10.5)
[2017-04-15 06:05] LABS: MANUAL DIFF YES %
[2017-04-15 06:13] LABS: BUN (BLOOD UREA NITROGEN) 19 MG/DL (6-23); CALCIUM, SERUM 8.5 MG/DL (8.5-10.4); CHLORIDE, SERUM 113 MMOL/L (96-112); CO2 (CARBON DIOXIDE) 25 MMOL/L (24-34); CREATININE 1.25 MG/DL (0.55-1.02); GFR AFRICAN AMERICAN 45 ML/MIN (>=60); GFR NON AFRICAN AMERICAN 39 ML/MIN (>=60); GLUCOSE, SERUM 128 MG/DL (60-99); POTASSIUM, SERUM 4.6 MMOL/L (3.5-5.3); SODIUM, SERUM 144 MMOL/L (135-148)
[2017-04-15 06:33] LABS: BAND NEUTROPHILS 8 %; IMMATURE GRANS ABSOLUTE (CALC) 0.56 10/3/uL (0.0-0.11); LYMPHOCYTES 7 %; LYMPHOCYTES ABSOLUTE (CALC) 0.99 10/3/uL (0.67-4.30); METAMYELOCYTES 4 %; MONOCYTES 5 %; MONOCYTES ABSOLUTE (CALC) 0.71 10/3/uL (0.21-1.20); NEUTROPHILS ABSOLUTE (CALC) 11.84 10/3/uL (2.02-8.40); PLATELET ESTIMATE ADQ (ADEQUATE); SEGMENTED NEUTROPHIL (0) 76 %; TOTAL NUCLEATED CELLS 100
[2017-04-15 06:34] LABS: RBC MORPHOLOGY NORM (NORMAL)
[2017-04-15 07:24] LABS: PROCALCITONIN 0.42 ng/mL (<0.5)
[2017-04-15 16:33] LABS: ALLENS TEST Pos; BE (BASE EXCESS) -5.7 MEQ/L (0 +/- 2.5); CARBOXYHEMOGLOBIN 0.8 % (0-3); HCO3 (ACTUAL BICARBONATE) 21.3 MEQ/L (23-27); HEMOBLOGIN CONTENT 11.9 G/DL (12-16); INSTRUMENT SERIAL # 8083; METHEMOGLOBIN 0.3 % (0-3); O2 CONTENT 16.3 VOL% (18-24); PCO2 (CO2 TENSION) 48 MMHG (35-45); PO2 (O2 TENSION) 104 MMHG (79-93); SAMPLE Arterial; pH 7.27 (7.37-7.43)
[2017-04-15 21:25] LABS: ALLENS TEST Pos; BE (BASE EXCESS) -1.1 MEQ/L (0 +/- 2.5); CARBOXYHEMOGLOBIN 0.4 % (0-3); DEVICE NC; HCO3 (ACTUAL BICARBONATE) 24.1 MEQ/L (23-27); HEMOBLOGIN CONTENT 11.9 G/DL (12-16); INSTRUMENT SERIAL # 11843; METHEMOGLOBIN 0.2 % (0-3); O2 CONTENT 16.1 VOL% (18-24); OPERATOR ID 31061; PCO2 (CO2 TENSION) 42 MMHG (35-45); PO2 (O2 TENSION) 88 MMHG (79-93); SAMPLE Arterial; pH 7.38 (7.37-7.43)
[2017-04-16 04:29] LABS: DEVICE NC; HCO3 (ACTUAL BICARBONATE) 25.6 MEQ/L (23-27); HEMOBLOGIN CONTENT 11.1 G/DL (12-16); INSTRUMENT SERIAL # 8083; O2 CONTENT 15.4 VOL% (18-24); PCO2 (CO2 TENSION) 36 MMHG (35-45); PO2 (O2 TENSION) 108 MMHG (79-93); SAMPLE Arterial; pH 7.47 (7.37-7.43)
[2017-04-16 04:30] LABS: ALLENS TEST Pos
[2017-04-16 06:07] LABS: BASOPHILS 0.2 %; BASOPHILS ABSOLUTE 0.02 10/3/uL (0.0-0.16); EOSINOPHILS 0 %; HEMATOCRIT 34.2 % (36.0-48.0); HEMOGLOBIN 10.4 g/dL (12.0-16.0); IMMATURE GRANULOCYTES 3.5 %; IMMATURE GRANULOCYTES ABSOLUTE 0.36 10/3/uL (0.0-0.11); LYMPHOCYTES 6.6 %; LYMPHOCYTES ABSOLUTE 0.68 10/3/uL (0.67-4.30); MEAN CORPUS HGB CONC 30.4 g/dL (32.0-36.0); MEAN CORPUSCULAR HEMOGLOB 25.9 pg (26.0-34.0); MEAN CORPUSCULAR VOLUME 85.1 fL (80-100); MEAN PLATELET VOLUME 8.8 fL (9.2-13.0); MONOCYTES 4.8 %; MONOCYTES ABSOLUTE 0.49 10/3/uL (0.21-1.20); NEUTROPHILS 84.9 %; NEUTROPHILS ABSOLUTE 8.73 10/3/uL (2.02-8.40); PLATELET COUNT 251 10/3/uL (150-400); RBC DISTRIBUTION WIDTH 16.5 % (12.0-16.0); RED CELL COUNT 4.02 10/6/uL (4.0-5.6); WHITE BLOOD CELLS 10.3 10/3/uL (4.5-10.5)
[2017-04-16 06:11] LABS: MANUAL DIFF NO %
[2017-04-16 06:14] LABS: BUN (BLOOD UREA NITROGEN) 21 MG/DL (6-23); CALCIUM, SERUM 8.2 MG/DL (8.5-10.4); CHLORIDE, SERUM 108 MMOL/L (96-112); CO2 (CARBON DIOXIDE) 29 MMOL/L (24-34); CREATININE 1.32 MG/DL (0.55-1.02); GFR AFRICAN AMERICAN 43 ML/MIN (>=60); GFR NON AFRICAN AMERICAN 37 ML/MIN (>=60); POTASSIUM, SERUM 3.7 MMOL/L (3.5-5.3); SODIUM, SERUM 143 MMOL/L (135-148)
[2017-04-16 06:15] LABS: GLUCOSE, SERUM 98 MG/DL (60-99)
[2017-04-17 05:37] LABS: HEMOGLOBIN 10.2 g/dL (12.0-16.0); MEAN CORPUS HGB CONC 31.9 g/dL (32.0-36.0); MEAN CORPUSCULAR HEMOGLOB 26.4 pg (26.0-34.0); MEAN CORPUSCULAR VOLUME 82.9 fL (80-100); MEAN PLATELET VOLUME 8.8 fL (9.2-13.0); PLATELET COUNT 270 10/3/uL (150-400); RBC DISTRIBUTION WIDTH 16.4 % (12.0-16.0); RED CELL COUNT 3.86 10/6/uL (4.0-5.6); WHITE BLOOD CELLS 11.6 10/3/uL (4.5-10.5)
[2017-04-17 05:41] LABS: MANUAL DIFF YES %
[2017-04-17 06:03] LABS: BUN (BLOOD UREA NITROGEN) 19 MG/DL (6-23); CALCIUM, SERUM 7.7 MG/DL (8.5-10.4); CHLORIDE, SERUM 104 MMOL/L (96-112); CO2 (CARBON DIOXIDE) 31 MMOL/L (24-34); CREATININE 1.26 MG/DL (0.55-1.02); GFR AFRICAN AMERICAN 45 ML/MIN (>=60); GFR NON AFRICAN AMERICAN 39 ML/MIN (>=60); GLUCOSE, SERUM 110 MG/DL (60-99); SODIUM, SERUM 140 MMOL/L (135-148)
[2017-04-17 06:04] LABS: POTASSIUM, SERUM 2.8 MMOL/L (3.5-5.3)
[2017-04-17 06:11] LABS: EOSINOPHILS 1 %; EOSINOPHILS ABSOLUTE (CALC) 0.12 10/3/uL (0.0-0.53); IMMATURE GRANS ABSOLUTE (CALC) 0.35 10/3/uL (0.0-0.11); LYMPHOCYTES 5 %; LYMPHOCYTES ABSOLUTE (CALC) 0.58 10/3/uL (0.67-4.30); METAMYELOCYTES 3 %; MONOCYTES 3 %; MONOCYTES ABSOLUTE (CALC) 0.35 10/3/uL (0.21-1.20); NEUTROPHILS ABSOLUTE (CALC) 10.21 10/3/uL (2.02-8.40); PLATELET ESTIMATE ADQ (ADEQUATE); RBC MORPHOLOGY NORM (NORMAL); SEGMENTED NEUTROPHIL (0) 88 %; TOTAL NUCLEATED CELLS 100
[2017-04-18 06:16] LABS: BASOPHILS 0.1 %; BASOPHILS ABSOLUTE 0.01 10/3/uL (0.0-0.16); EOSINOPHILS 1.1 %; HEMATOCRIT 31.1 % (36.0-48.0); HEMOGLOBIN 9.8 g/dL (12.0-16.0); IMMATURE GRANULOCYTES 1.1 %; LYMPHOCYTES 7.8 %; LYMPHOCYTES ABSOLUTE 0.74 10/3/uL (0.67-4.30); MEAN CORPUS HGB CONC 31.5 g/dL (32.0-36.0); MEAN CORPUSCULAR HEMOGLOB 26.2 pg (26.0-34.0); MEAN CORPUSCULAR VOLUME 83.2 fL (80-100); MONOCYTES 7.5 %; MONOCYTES ABSOLUTE 0.71 10/3/uL (0.21-1.20); NEUTROPHILS 82.4 %; NEUTROPHILS ABSOLUTE 7.82 10/3/uL (2.02-8.40); PLATELET COUNT 251 10/3/uL (150-400); RBC DISTRIBUTION WIDTH 16.5 % (12.0-16.0); RED CELL COUNT 3.74 10/6/uL (4.0-5.6); WHITE BLOOD CELLS 9.5 10/3/uL (4.5-10.5)
[2017-04-18 06:20] LABS: MANUAL DIFF NO %
[2017-04-18 06:32] LABS: BUN (BLOOD UREA NITROGEN) 16 MG/DL (6-23); CALCIUM, SERUM 7.5 MG/DL (8.5-10.4); CHLORIDE, SERUM 99 MMOL/L (96-112); CO2 (CARBON DIOXIDE) 35 MMOL/L (24-34); CREATININE 1.19 MG/DL (0.55-1.02); GFR AFRICAN AMERICAN 48 ML/MIN (>=60); GFR NON AFRICAN AMERICAN 42 ML/MIN (>=60); GLUCOSE, SERUM 104 MG/DL (60-99); SGOT(AST) 22 U/L (5-40); SGPT(ALT) 8 U/L (5-65); SODIUM, SERUM 138 MMOL/L (135-148); TOTAL BILIRUBIN 0.3 MG/DL (0-1.2); TOTAL PROTEIN 5.8 G/DL (6.0-8.5)
[2017-04-18 06:34] LABS: A/G RATIO 0.4 (0.7-1.9); ALBUMIN 1.7 G/DL (3.5-5.0); ALKALINE PHOSPHATASE 210 U/L (45-117); GLOBULIN 4.1 G/DL (2.5-4.1); POTASSIUM, SERUM 2.6 MMOL/L (3.5-5.3)
[2017-04-18 13:12] LABS: BUN (BLOOD UREA NITROGEN) 15 MG/DL (6-23); CALCIUM, SERUM 7.6 MG/DL (8.5-10.4); CHLORIDE, SERUM 101 MMOL/L (96-112); CO2 (CARBON DIOXIDE) 33 MMOL/L (24-34); CREATININE 1.18 MG/DL (0.55-1.02); GFR AFRICAN AMERICAN 49 ML/MIN (>=60); GFR NON AFRICAN AMERICAN 42 ML/MIN (>=60); GLUCOSE, SERUM 99 MG/DL (60-99); SODIUM, SERUM 139 MMOL/L (135-148)
[2017-04-18 13:14] LABS: POTASSIUM, SERUM 3.4 MMOL/L (3.5-5.3)
[2017-04-19 06:21] LABS: HEMATOCRIT 33.9 % (36.0-48.0); HEMOGLOBIN 10.6 g/dL (12.0-16.0); MEAN CORPUS HGB CONC 31.3 g/dL (32.0-36.0); MEAN CORPUSCULAR HEMOGLOB 26.8 pg (26.0-34.0); MEAN PLATELET VOLUME 9.2 fL (9.2-13.0); PLATELET COUNT 268 10/3/uL (150-400); RBC DISTRIBUTION WIDTH 16.8 % (12.0-16.0); RED CELL COUNT 3.95 10/6/uL (4.0-5.6)
[2017-04-19 06:22] LABS: MANUAL DIFF YES %; MEAN CORPUSCULAR VOLUME 85.8 fL (80-100); WHITE BLOOD CELLS 21.4 10/3/uL (4.5-10.5)
[2017-04-19 06:33] LABS: BUN (BLOOD UREA NITROGEN) 14 MG/DL (6-23); CALCIUM, SERUM 7.4 MG/DL (8.5-10.4); CHLORIDE, SERUM 103 MMOL/L (96-112); CO2 (CARBON DIOXIDE) 34 MMOL/L (24-34); CREATININE 1.02 MG/DL (0.55-1.02); GFR AFRICAN AMERICAN 58 ML/MIN (>=60); GFR NON AFRICAN AMERICAN 50 ML/MIN (>=60); GLUCOSE, SERUM 98 MG/DL (60-99); SODIUM, SERUM 142 MMOL/L (135-148)
[2017-04-19 06:37] LABS: POTASSIUM, SERUM 4.2 MMOL/L (3.5-5.3)
[2017-04-19 06:47] LABS: BAND NEUTROPHILS 1 %; BASOPHILS 1 %; BASOPHILS ABSOLUTE (CALC) 0.21 10/3/uL (0.0-0.16); LYMPHOCYTES 2 %; LYMPHOCYTES ABSOLUTE (CALC) 0.43 10/3/uL (0.67-4.30); MONOCYTES 2 %; MONOCYTES ABSOLUTE (CALC) 0.43 10/3/uL (0.21-1.20); NEUTROPHILS ABSOLUTE (CALC) 20.33 10/3/uL (2.02-8.40); PLATELET ESTIMATE ADQ (ADEQUATE); SEGMENTED NEUTROPHIL (0) 94 %; TOTAL NUCLEATED CELLS 100
[2017-04-19 06:48] LABS: POLYCHROMASIA 1+ (2-5/OIF) (0-1/OIF); TOXIC GRANULATION 1+; VACUOLATED NEUTROPHILES OCC
[2017-04-19 18:07] LABS: ASCORBIC ACID (UR NOT ORDER) NEG (NEG); BILIRUBIN, URINE NEGATIVE (NEG); KETONE, URINE NEGATIVE (NEG); LEUKOCYTE ESTERASE(NOT OR MOD (NEG)
[2017-04-19 18:08] LABS: WBC (NOT ORDERED) (RFLEX) > 182 (0-5)
[2017-04-20 06:37] LABS: BASOPHILS 0.1 %; BASOPHILS ABSOLUTE 0.01 10/3/uL (0.0-0.16); EOSINOPHILS 2.6 %; EOSINOPHILS ABSOLUTE 0.24 10/3/uL (0.0-0.53); HEMATOCRIT 32.2 % (36.0-48.0); IMMATURE GRANULOCYTES 0.4 %; IMMATURE GRANULOCYTES ABSOLUTE 0.04 10/3/uL (0.0-0.11); LYMPHOCYTES 6.3 %; LYMPHOCYTES ABSOLUTE 0.57 10/3/uL (0.67-4.30); MEAN CORPUS HGB CONC 31.1 g/dL (32.0-36.0); MEAN CORPUSCULAR HEMOGLOB 26.6 pg (26.0-34.0); MEAN CORPUSCULAR VOLUME 85.6 fL (80-100); MEAN PLATELET VOLUME 9.3 fL (9.2-13.0); MONOCYTES 6.3 %; MONOCYTES ABSOLUTE 0.57 10/3/uL (0.21-1.20); NEUTROPHILS 84.3 %; NEUTROPHILS ABSOLUTE 7.67 10/3/uL (2.02-8.40); PLATELET COUNT 218 10/3/uL (150-400); RBC DISTRIBUTION WIDTH 17.1 % (12.0-16.0); RED CELL COUNT 3.76 10/6/uL (4.0-5.6)
[2017-04-20 06:38] LABS: MANUAL DIFF NO %; WHITE BLOOD CELLS 9.1 10/3/uL (4.5-10.5)
[2017-04-20 06:46] LABS: BUN (BLOOD UREA NITROGEN) 16 MG/DL (6-23); CALCIUM, SERUM 7.7 MG/DL (8.5-10.4); CHLORIDE, SERUM 98 MMOL/L (96-112); CO2 (CARBON DIOXIDE) 33 MMOL/L (24-34); CREATININE 0.98 MG/DL (0.55-1.02); GFR AFRICAN AMERICAN 61 ML/MIN (>=60); GFR NON AFRICAN AMERICAN 53 ML/MIN (>=60); GLUCOSE, SERUM 87 MG/DL (60-99); POTASSIUM, SERUM 3.5 MMOL/L (3.5-5.3); SODIUM, SERUM 136 MMOL/L (135-148)
[2017-04-21 06:46] LABS: BUN (BLOOD UREA NITROGEN) 13 MG/DL (6-23); CALCIUM, SERUM 7.6 MG/DL (8.5-10.4); CHLORIDE, SERUM 99 MMOL/L (96-112); CO2 (CARBON DIOXIDE) 33 MMOL/L (24-34); CREATININE 0.96 MG/DL (0.55-1.02); GFR AFRICAN AMERICAN 63 ML/MIN (>=60); GFR NON AFRICAN AMERICAN 54 ML/MIN (>=60); GLUCOSE, SERUM 96 MG/DL (60-99); POTASSIUM, SERUM 3.7 MMOL/L (3.5-5.3); SODIUM, SERUM 137 MMOL/L (135-148)
[2017-04-21 12:24] LABS: BE (BASE EXCESS) 6.1 MEQ/L (0 +/- 2.5); HCO3 (ACTUAL BICARBONATE) 30.4 MEQ/L (23-27); HEMOBLOGIN CONTENT 10.6 G/DL (12-16); INSTRUMENT SERIAL # 8083; METHEMOGLOBIN 0.2 % (0-3); O2 CONTENT 14.2 VOL% (18-24); OPERATOR ID 14472; PCO2 (CO2 TENSION) 43 MMHG (35-45); PO2 (O2 TENSION) 77 MMHG (79-93); SAMPLE Arterial; pH 7.47 (7.37-7.43)
[2017-04-22 06:44] LABS: BUN (BLOOD UREA NITROGEN) 11 MG/DL (6-23); CALCIUM, SERUM 7.4 MG/DL (8.5-10.4); CHLORIDE, SERUM 103 MMOL/L (96-112); CO2 (CARBON DIOXIDE) 31 MMOL/L (24-34); CREATININE 0.83 MG/DL (0.55-1.02); GFR AFRICAN AMERICAN 75 ML/MIN (>=60); GFR NON AFRICAN AMERICAN 64 ML/MIN (>=60); GLUCOSE, SERUM 82 MG/DL (60-99); POTASSIUM, SERUM 3.6 MMOL/L (3.5-5.3); SODIUM, SERUM 139 MMOL/L (135-148)
[2017-04-23 08:15] LABS: BASOPHILS 0.4 %; BASOPHILS ABSOLUTE 0.03 10/3/uL (0.0-0.16); EOSINOPHILS 3.1 %; EOSINOPHILS ABSOLUTE 0.22 10/3/uL (0.0-0.53); HEMATOCRIT 33.1 % (36.0-48.0); HEMOGLOBIN 10.5 g/dL (12.0-16.0); IMMATURE GRANULOCYTES 0.3 %; IMMATURE GRANULOCYTES ABSOLUTE 0.02 10/3/uL (0.0-0.11); LYMPHOCYTES 10.4 %; LYMPHOCYTES ABSOLUTE 0.75 10/3/uL (0.67-4.30); MEAN CORPUS HGB CONC 31.7 g/dL (32.0-36.0); MEAN CORPUSCULAR VOLUME 85.1 fL (80-100); MEAN PLATELET VOLUME 9.3 fL (9.2-13.0); MONOCYTES 6.1 %; MONOCYTES ABSOLUTE 0.44 10/3/uL (0.21-1.20); NEUTROPHILS 79.7 %; NEUTROPHILS ABSOLUTE 5.74 10/3/uL (2.02-8.40); RBC DISTRIBUTION WIDTH 17.6 % (12.0-16.0); RED CELL COUNT 3.89 10/6/uL (4.0-5.6); WHITE BLOOD CELLS 7.2 10/3/uL (4.5-10.5)
[2017-04-23 08:17] LABS: MANUAL DIFF NO %; PLATELET COUNT 284 10/3/uL (150-400)
[2017-04-23 08:28] LABS: BUN (BLOOD UREA NITROGEN) 10 MG/DL (6-23); CALCIUM, SERUM 7.8 MG/DL (8.5-10.4); CHLORIDE, SERUM 98 MMOL/L (96-112); CO2 (CARBON DIOXIDE) 32 MMOL/L (24-34); CREATININE 0.88 MG/DL (0.55-1.02); GFR AFRICAN AMERICAN 69 ML/MIN (>=60); GFR NON AFRICAN AMERICAN 60 ML/MIN (>=60); GLUCOSE, SERUM 99 MG/DL (60-99); POTASSIUM, SERUM 3.4 MMOL/L (3.5-5.3); SODIUM, SERUM 135 MMOL/L (135-148)
[2017-04-24 06:33] LABS: BUN (BLOOD UREA NITROGEN) 11 MG/DL (6-23); CHLORIDE, SERUM 100 MMOL/L (96-112); CO2 (CARBON DIOXIDE) 29 MMOL/L (24-34); CREATININE 1.04 MG/DL (0.55-1.02); GFR AFRICAN AMERICAN 57 ML/MIN (>=60); GFR NON AFRICAN AMERICAN 49 ML/MIN (>=60); GLUCOSE, SERUM 101 MG/DL (60-99); POTASSIUM, SERUM 3.5 MMOL/L (3.5-5.3); SODIUM, SERUM 135 MMOL/L (135-148)
[2017-04-25 05:22] LABS: BUN (BLOOD UREA NITROGEN) 10 MG/DL (6-23); CHLORIDE, SERUM 102 MMOL/L (96-112); CO2 (CARBON DIOXIDE) 29 MMOL/L (24-34); GFR AFRICAN AMERICAN 53 ML/MIN (>=60); GFR NON AFRICAN AMERICAN 46 ML/MIN (>=60); GLUCOSE, SERUM 105 MG/DL (60-99); POTASSIUM, SERUM 3.4 MMOL/L (3.5-5.3); SODIUM, SERUM 136 MMOL/L (135-148)
[2017-04-26 07:15] LABS: BUN (BLOOD UREA NITROGEN) 11 MG/DL (6-23); CALCIUM, SERUM 8.2 MG/DL (8.5-10.4); CHLORIDE, SERUM 103 MMOL/L (96-112); CO2 (CARBON DIOXIDE) 28 MMOL/L (24-34); CREATININE 1.08 MG/DL (0.55-1.02); GFR AFRICAN AMERICAN 54 ML/MIN (>=60); GFR NON AFRICAN AMERICAN 47 ML/MIN (>=60); GLUCOSE, SERUM 95 MG/DL (60-99); POTASSIUM, SERUM 3.8 MMOL/L (3.5-5.3); SODIUM, SERUM 136 MMOL/L (135-148)
[2017-04-26 07:16] LABS: BASOPHILS 0.6 %; BASOPHILS ABSOLUTE 0.04 10/3/uL (0.0-0.16); EOSINOPHILS 1.3 %; EOSINOPHILS ABSOLUTE 0.09 10/3/uL (0.0-0.53); HEMATOCRIT 33.3 % (36.0-48.0); HEMOGLOBIN 10.2 g/dL (12.0-16.0); IMMATURE GRANULOCYTES 0.3 %; IMMATURE GRANULOCYTES ABSOLUTE 0.02 10/3/uL (0.0-0.11); LYMPHOCYTES 11.1 %; LYMPHOCYTES ABSOLUTE 0.76 10/3/uL (0.67-4.30); MEAN CORPUS HGB CONC 30.6 g/dL (32.0-36.0); MEAN CORPUSCULAR HEMOGLOB 26.8 pg (26.0-34.0); MEAN CORPUSCULAR VOLUME 87.6 fL (80-100); MEAN PLATELET VOLUME 9.2 fL (9.2-13.0); MONOCYTES 8.8 %; NEUTROPHILS 77.9 %; NEUTROPHILS ABSOLUTE 5.33 10/3/uL (2.02-8.40); PLATELET COUNT 318 10/3/uL (150-400); RBC DISTRIBUTION WIDTH 18.2 % (12.0-16.0); WHITE BLOOD CELLS 6.8 10/3/uL (4.5-10.5)
[2017-04-26 07:18] LABS: MANUAL DIFF NO %
== END 2017-04-27 11:59 | DRG 871 ==
LOC: ER 12:46 → 2SO 17:17
PROVIDERS: Emergency Medicine; Hospitalist; Internal Medicine; Student in an Organized Health Care Education/Training Program; Urology
PROC: 0T9B70Z Drainage of Bladder with Drainage Device, Via Natural or Artificial Opening (ICD-10-PCS; principal; 2017-04-11 14:15)
PROC: BT141ZZ Fluoroscopy of Kidneys, Ureters and Bladder using Low Osmolar Contrast (ICD-10-PCS; 2017-04-18)
PROC: 0T7D8DZ Dilation of Urethra with Intraluminal Device, Via Natural or Artificial Opening Endoscopic (ICD-10-PCS; 2017-04-23)
PROC: 0T9B80Z Drainage of Bladder with Drainage Device, Via Natural or Artificial Opening Endoscopic (ICD-10-PCS; 2017-04-23)
DX: A41.51 Sepsis due to Escherichia coli [E. coli] (principal); G93.41 Metabolic encephalopathy; N17.9 Acute kidney failure, unspecified; E44.1 Mild protein-calorie malnutrition; I48.0 Paroxysmal atrial fibrillation; R13.12 Dysphagia, oropharyngeal phase; N39.0 Urinary tract infection, site not specified; F03.90 Unspecified dementia, unspecified severity, without behavioral disturbance, psychotic disturbance, mood disturbance, and anxiety; C53.9 Malignant neoplasm of cervix uteri, unspecified; D64.9 Anemia, unspecified; I10 Essential (primary) hypertension; R65.20 Severe sepsis without septic shock; R62.7 Adult failure to thrive; F41.9 Anxiety disorder, unspecified; M81.0 Age-related osteoporosis without current pathological fracture; N35.9 Urethral stricture, unspecified; F32.9 Major depressive disorder, single episode, unspecified; E03.9 Hypothyroidism, unspecified; Z92.3 Personal history of irradiation; Z92.21 Personal history of antineoplastic chemotherapy; Z82.49 Family history of ischemic heart disease and other diseases of the circulatory system; Z68.27 Body mass index [BMI] 27.0-27.9, adult
CPT/HCPCS: 36600; 51102; 70450; 71010; 74000; 74176; 74230; 76000; 76380; 80048; 80053; 80069; 81001; 82140; 82805; 83605; 83690; 83735; 83880; 84132; 84145; 84443; 85025; 85610; 87040; 87077; 87086; 87186; 92610-GN; 92611-GN; 93005; 94640; 96374; 97110-GO; 97110-GP; 97162-GP; 97166-GO; 97530-GO; 97530-GP; 97535-GO; 99285; A9270-GY; C1769; C8929; G8978-CL-GP; G8979-CJ-GP; G8987-CL-GO; G8988-CK-GO; G8996-CL-GN; G8996-CM-GN; G8997-CL-GN; G8997-CM-GN; G8998-CL-GN; G8998-CM-GN; J0690; J2370; J2405; J3010; J3360; Q9957; Q9967